=== PATIENT | female | born 1985 | race Hispanic/Latino ===

== ENCOUNTER → 2018-01-29 | Outpatient (CLI) | payer BC ==
[~2018-01-29] MED LIST: SINCALIDE 3 MCG/VIAL INJ ONE
--- NOTE | 2018-01-29 16:39 | Diagnostic Imaging Report ---
Hepatobiliary Scan with Gallbladder Ejection Fraction Clinical information: 32 F with chronic abdominal pain Technique: Following intravenous administration of 6.6 millicuries of Tc-[id number] mebrofenin, dynamic images of the abdomen in the anterior projection were obtained through 45 minutes. Sincalide (CCK analog) 1.6 micrograms was administered intravenously over 30 minutes with additional imaging for determination of gallbladder ejection fraction. Discussion: Perfusion of the liver is normal. Extraction of tracer by the liver parenchyma is normal. Tracer appears promptly within the biliary tract. The gallbladder begins to fill by 12 minutes post injection of tracer and fills adequately. Tracer is seen in the small bowel by 40 minutes. The gallbladder ejection fraction with sincalide is 12% (normal greater than 40%). Impression: 1. Filling of the gallbladder excludes acute cystic duct obstruction/acute cholecystitis. 2. The decreased gallbladder ejection fraction of 12% supports the clinical diagnosis of chronic cholecystitis/gallbladder dyskinesia. Signed by: Dr. Seda Partida M.D. on 01/29/2018 4:36 PM
== END ==
LOC: NM 07:54
PROVIDERS: ATTEND Internal Medicine Gastroenterology
DX: R10.10 Upper abdominal pain, unspecified (principal)
CPT/HCPCS: 78227; A9537; J2805